=== PATIENT | female | born 1970 | race African-American/Black ===

== ENCOUNTER 2020-02-07 06:54 | Day surgery (SDC) | payer BC ==
[2020-02-07] MEDS ORDERED: Lactated Ringers 1,000 ML IV SCH (07:00)
[2020-02-07] MEDS ORDERED: Propofol 200 MG/20 ML SDV ONE ×2 (08:00→08:26)
[2020-02-07] MEDS ORDERED: fentaNYL 100 MCG/2 ML SDV ONE (08:00)
--- NOTE | 2020-02-08 08:28 | OR ---
DATE OF SURGERY: 02/07/2020. REFERRING PROVIDER: Paula Ray MD PRE-OPERATIVE DIAGNOSES: 1. Screening colonoscopy. This is the patient's first colonoscopy. 2. History of chronic constipation. There is no family history of any colon cancer. POST-OPERATIVE DIAGNOSES: 1. 2 mm rectal polyp removed using cold forceps. 2. Tortuous but otherwise normal appearing colon. PROCEDURE: Colonoscopy with polypectomy x1 using cold forceps. SURGEON: Jonatan Munoz M.D. ANESTHESIA: Monitored anesthesia care. BOWEL PREP: Fair and did require moderate amount of irrigation and suctioning. Sissy is a 49-year-old female who was brought to the endoscopy suite after discussing risks and benefits of the procedure. Informed consent was obtained for conscious sedation and colonoscopy with or without biopsy and/or polypectomy. We also discussed possibility of missed lesions. Pre-procedure exam was unremarkable. IV, oxygen, and monitors were placed. The patient was placed in the left lateral decubitus position. Sedation was administered and a digital rectal exam was performed and unremarkable. Colonoscope was passed into the rectum and slowly advanced all the way to the cecum. The patient did have very tortuous colon and did require scope maneuvering and abdominal pressure and lifting to obtain cecal intubation. Cecum was viewed and photographed. The colonoscope was slowly withdrawn and the mucosa was closely observed in a direct circumferential manner. The ascending colon was unremarkable. The transverse colon was unremarkable. The descending colon was unremarkable. The sigmoid colon was unremarkable. Retroflexion was performed and rectal mucosa was remarkable for a 2 mm rectal polyp removed using cold forceps. Scope was removed. The patient tolerated the procedure well. The patient was monitored until that baseline status. Discharge instructions were reviewed and the patient was discharged in good condition. COMPLICATIONS: None. TOTAL TIME: 39 minutes. ESTIMATED BLOOD LOSS: Less than 1 mL. RECOMMENDATIONS/FOLLOW-UP: We will await results of path report to determine ideal followup interval. I would like to kindly thank Dr. Ray for this referral. DMB: 02/07/2020 11:29:12 MODL: 02/07/2020 14:18:29 /[id number]
== END 2020-02-07 10:30 | disposition home or self-care (01) ==
LOC: VM.SDS 06:54
PROVIDERS: ATTEND Family Medicine
DX: Z12.11 Encounter for screening for malignant neoplasm of colon (principal); K62.1 Rectal polyp; I10 Essential (primary) hypertension; R73.03 Prediabetes; Z79.899 Other long term (current) drug therapy; Z98.890 Other specified postprocedural states; Z79.82 Long term (current) use of aspirin; Z01.812 Encounter for preprocedural laboratory examination; Z20.828 Contact with and (suspected) exposure to other viral communicable diseases
CPT/HCPCS: 00812; J2704; J3010; J7120; U0002